=== PATIENT | female | born 1985 | race Native Hawaiian/Other Pacific Islander ===

== ENCOUNTER → 2017-08-11 05:49 | Outpatient (CLI) | payer OTHER | END | disposition home or self-care (01) | LOC: AMB 05:49 | DX: Z04.1 Encounter for examination and observation following transport accident (principal) ==

== ENCOUNTER 2017-12-19 19:26 | Emergency (ER) | payer OTHER ==
[~2017-12-19] VITALS: Ht 162.6 cm; Wt 134.3 kg
[2017-12-19 20:41] VITALS: BP 148/88; TEMP 98.1
== END 2017-12-19 20:43 | disposition home or self-care (01) ==
LOC: ED 19:26
DX: O46.90 Antepartum hemorrhage, unspecified, unspecified trimester (principal)
CPT/HCPCS: 99282